=== PATIENT | female | born 1950 | race Asian ===

== ENCOUNTER 2023-06-05 02:43 | Inpatient (IN) | payer OTHER ==
[~2023-06-05] VITALS: Ht 149.9 cm; Wt 48.5 kg
[2023-06-05] MEDS ORDERED: ACETAMINOPHEN 500 MG TABLET ONE (05:10)
[2023-06-05] MEDS ORDERED: GABAPENTIN 300 MG CAPSULE ONE (05:34)
[2023-06-05] MEDS: ACETAMINOPHEN 500 MG TABLET PO ONE (05:46)
[2023-06-05] MEDS: SCOPOLAMINE HYDROBROMIDE 1 MG PATCH .72 H (TRANSDERM-SCOP) TD ONE (05:46)
[2023-06-05] MEDS: CELECOXIB 100 MG CAPSULE ONE (05:46)
[2023-06-05] MEDS ORDERED: SCOPOLAMINE HYDROBROMIDE 1 MG PATCH .72 H (TRANSDERM-SCOP) TD ONE (06:00)
[2023-06-05] MEDS ORDERED: CELECOXIB 100 MG CAPSULE PO ONE (06:00)
[2023-06-05] MEDS ORDERED: GABAPENTIN 300 MG CAPSULE PO ONE (06:00)
[2023-06-05] MEDS ORDERED: oxyCODONE HCL 10 MG TAB.ER.12H PO ONE (06:00)
[2023-06-05] MEDS ORDERED: WATER FOR IRRIGATION,STERILE 1,000 ML IRRIG.SOLN IR ONE (06:45)
[2023-06-05] MEDS ORDERED: ONDANSETRON HCL 4 MG/2 ML VIAL ONE (06:45)
[2023-06-05] MEDS ORDERED: MIDAZOLAM HCL 5 MG/5 ML VIAL ONE (06:45)
[2023-06-05] MEDS ORDERED: ePHEDrine sulfate 50 MG/ML VIAL ONE (06:45)
[2023-06-05] MEDS ORDERED: VANCOMYCIN HCL 1000 MG/VIAL IV ONE (06:45)
[2023-06-05] MEDS ORDERED: TRANEXAMIC ACID 1,000 MG/10 ML VIAL ONE (06:45)
[2023-06-05] MEDS ORDERED: PHENYLEPHRINE HCL 10 MG/ML VIAL (NEOSYNEPHRINE) ONE (06:45)
[2023-06-05] MEDS ORDERED: NS IRRIG SOLN 1000 ML IR ONE (06:45)
[2023-06-05] MEDS ORDERED: DEXAMETHASONE SOD PHOSPHATE 4 MG/ML VIAL ONE (06:45)
[2023-06-05] MEDS ORDERED: KETOROLAC TROMETHAMINE 30 MG VIAL ONE (06:45)
[2023-06-05] MEDS ORDERED: GLYCOPYRROLATE 0.2 MG/ML VIAL ONE (06:45)
[2023-06-05] MEDS ORDERED: fentaNYL CITRATE/PF 100 MCG/2 ML AMP ONE (06:45)
[2023-06-05] MEDS ORDERED: LR 1,000 ML IV.SOLN IV ONE (06:45)
[2023-06-05] MEDS ORDERED: PROPOFOL 200MG/ 20ML VIAL (DIPRIVAN) IV ONE (06:45)
[2023-06-05] MEDS ORDERED: NS 1000 ML IV.SOLN IV ONE (06:45)
[2023-06-05] MEDS ORDERED: BUPIVACAINE /PF 0.25% 30 ML VIAL INJ ONE (06:45)
[2023-06-05] MEDS: oxyCODONE HCL 10 MG TAB.ER.12H PO ONE (07:00)
[2023-06-05] MEDS ORDERED: DIPHENHYDRAMINE HCL 25 MG CAPSULE PO PRN (07:15)
[2023-06-05] MEDS ORDERED: METOCLOPRAMIDE HCL 10 MG/2 ML VIAL IVP PRN ×2 (07:15→09:15)
[2023-06-05] MEDS ORDERED: BISACODYL 10 MG/SUPPOSITORY RC PRN (07:15)
[2023-06-05] MEDS ORDERED: LACTULOSE 20 GM/30 ML UDC PO PRN (07:15)
[2023-06-05] MEDS ORDERED: NALOXONE HCL 0.4 MG/ML AMP (NARCAN) IVP PRN ×4 (07:15→09:15)
[2023-06-05] MEDS ORDERED: MORPHINE 4 MG INJ. 4 MG/ML VIAL IVP PRN ×2 (09:15)
[2023-06-05] MEDS ORDERED: HYDROmorphone 1 MG/ML INJ. CARTRIDGE IVP PRN ×4 (09:15→11:00)
[2023-06-05] MEDS ORDERED: ONDANSETRON HCL 4 MG/2 ML VIAL IVP PRN ×2 (09:15→11:45)
[2023-06-05] MEDS ORDERED: traMADol HCL HCL 50 MG TABLET (ULTRAM) PO PRN (11:00)
[2023-06-05] MEDS ORDERED: LORATADINE 10 MG TABLET PO PRN (11:00)
[2023-06-05] MEDS ORDERED: oxyCODONE HCL 5 MG TABLET PO PRN (11:00)
[2023-06-05 11:51] VITALS: BP_SYST 152; PULSE 65; RESP 19; TEMP 98; O2SAT 100
[2023-06-05 12:09] VITALS: O2SAT 98
[2023-06-05 12:19] VITALS: BP_SYST 144; PULSE 84; RESP 18; TEMP 98
[2023-06-05] MEDS: ceFAZolin SODIUM 2 GM in D5W 50 ML IV SCH (12:40)
[2023-06-05] MEDS: KETOROLAC TROMETHAMINE 10 MG TABLET (TORADOL) PO SCH (14:00)
[2023-06-05 16:56] VITALS: BP_SYST 111; PULSE 72; RESP 17; TEMP 98.4; O2SAT 93
[2023-06-05 20:00] VITALS: BP_SYST 108; PULSE 75; RESP 17; TEMP 97.1; O2SAT 94
[2023-06-05] MEDS: SENNOSIDES/DOCUSATE SODIUM 1 TAB TABLET(SENOKOT-S) PO SCH (21:09)
[2023-06-05] MEDS: ACETAMINOPHEN 500 MG TABLET PO SCH (21:10)
[2023-06-06] VITALS: BP_SYST 104; PULSE 70; RESP 16; TEMP 97.6; O2SAT 94
[2023-06-06] MEDS: oxyCODONE HCL 5 MG TABLET PO PRN (01:00)
[2023-06-06 06:24] LABS: BASOPHILS % (AUTO) 0.3 % (0.0-2.0); EOSINOPHILS % (AUTO) 0.4 % (0.0-4.0); HEMATOCRIT 33.9 % (36-48); HEMOGLOBIN 11.3 g/dL (12.0-16.0); LYMPHOCYTES # (AUTO) 1.7 K/uL (1.0-5.5); LYMPHOCYTES % (AUTO) 16.9 % (20.5-51.5); MEAN CORPUSCULAR HEMOGLOBIN 32 pg (27-31); MEAN CORPUSCULAR HGB CONC 34 % (32-36); MEAN CORPUSCULAR VOLUME 95 fL (79.0-98.0); MONOCYTES # (AUTO) 1.1 K/uL (0.0-1.0); NEUTROPHILS # (AUTO) 7.2 K/uL (1.8-7.7); NEUTROPHILS % (AUTO) 71.4 % (40.0-70.0); PLATELET COUNT (AUTO) 195 K/uL (130-430); RED BLOOD CELL COUNT(AUTO) 3.58 MIL/uL (4.2-6.2); RED CELL DISTRIBUTION WIDTH 13.4 % (9.0-15.0); WHITE BLOOD COUNT (AUTO) 10.1 K/uL (4.8-10.8)
[2023-06-06 06:59] LABS: ALANINE AMINOTRANSFERASE 17 U/L (12-78); ALBUMIN 2.6 g/dL (3.4-4.8); ANION GAP 7 (5-15); ASPARTATE AMINOTRANSFERASE 26 U/L (10-37); CARBON DIOXIDE 28 mmol/L (23-29); CHLORIDE 106 mmol/L (98-107); CREATININE 0.96 mg/dL (0.55-1.30); GLUCOSE 96 mg/dL (74-106); SODIUM SERUM 141 mmol/L (136-145); TOTAL BILIRUBIN 0.4 mg/dL (0.0-1.0); TOTAL PROTEIN, SERUM 5.7 g/dL (6.4-8.3); UREA NITROGEN, BLOOD 19 mg/dL (8-21)
[2023-06-06 08:13] VITALS: BP_SYST 101; PULSE 73; RESP 18; TEMP 97.1; O2SAT 96
[2023-06-06] MEDS: CELECOXIB 200 MG CAPSULE PO SCH (10:03)
[2023-06-06] MEDS: ASPIRIN 81 MG TAB.CHEW PO SCH (10:03)
[2023-06-06 11:24] VITALS: BP_SYST 91; PULSE 80; RESP 16; TEMP 97.1; O2SAT 97
[2023-06-06 14:23] VITALS: BP_SYST 96; PULSE 68; RESP 18; TEMP 97; O2SAT 95
== END 2023-06-06 17:05 | DRG 470 ==
LOC: UNDOADMIN 05:00 → SMU 05:00
PROVIDERS: ADMIT Student in an Organized Health Care Education/Training Program; ATTEND Student in an Organized Health Care Education/Training Program
PROC: 0SRB04Z Replacement of Left Hip Joint with Ceramic on Polyethylene Synthetic Substitute, Open Approach (ICD-10-PCS; principal; 2023-06-05 07:08)
DX: M16.12 Unilateral primary osteoarthritis, left hip (principal); Z79.899 Other long term (current) drug therapy
CPT/HCPCS: 36415; 72170-TC; 76000; 80053; 85025; 87081; 88304; 88311; 96379; 97110-GP; 97116-GP; 97530-GP; A4649; C1713; C1776; J1100; J1885; J2250; J2370; J2405; J2704; J3010; J3370; J3490; J7030; J7060; J7120